=== PATIENT | male | born 1950 | race Caucasian/White ===

== ENCOUNTER 2022-11-05 14:08 | Outpatient (CLI) | payer MEDICARE, BC | END 2022-11-05 23:59 | disposition home or self-care (01) | LOC: RAD 14:08 | PROVIDERS: ATTEND Nurse Practitioner Family | DX: R41.3 Other amnesia (principal); R41.89 Other symptoms and signs involving cognitive functions and awareness; J34.89 Other specified disorders of nose and nasal sinuses | CPT/HCPCS: 70551 ==